=== PATIENT | female | born 1950 ===

== ENCOUNTER 2024-02-05 08:58 | Inpatient (IN) | payer OTHER ==
[2024-02-05 12:10] VITALS: BMI 35.8
[2024-02-05] MEDS ORDERED: ACETAMINOPHEN 500 MG TAB PO PRN (13:00)
[2024-02-05] MEDS ORDERED: methocarbamoL 500 MG TAB PO PRN (13:04)
[2024-02-05] MEDS ORDERED: DOCUSATE NA/SENNA CONC 1 TAB PO PRN (14:12)
[2024-02-05] MEDS ORDERED: MELATONIN 3 MG TABLET PO PRN (14:12)
[2024-02-05] MEDS: TRAMADOL HCL 50 MG TAB PO PRN (15:51)
[2024-02-05] MEDS: INSULIN REGULAR (HUMAN) 100 UNIT/ML SQ SCH (17:27)
[2024-02-05] MEDS: DOCUSATE NA/SENNA CONC 1 TAB PO SCH (20:12)
[2024-02-05] MEDS: PIOGLITAZONE 15 MG TAB PO SCH (20:13)
[2024-02-05] MEDS: glipiZIDE 5 MG TAB PO SCH (20:16)
[2024-02-05] MEDS: oxyBUTYnin chloride 5 MG TAB PO SCH (20:16)
[2024-02-05] MEDS: APIXABAN 2.5 MG TABLET PO SCH (20:16)
[2024-02-05] MEDS: GABAPENTIN 100 MG CAP PO SCH (20:16)
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
[2024-02-06 04:22] LABS: Specific Gravity 1.006 (1.005-1.030); Sqamous Epithelial <5 /HPF (None Seen); Urine Bacteria >50 /HPF (<20); Urine Bilirubin NEGATIVE (Negative); Urine Blood 1+ (Negative); Urine Clarity Extremely Turbid (Clear); Urine Color Light-Orange (Yellow); Urine Culture Reflex Order REFLEXED; Urine Glucose 4+ (Negative); Urine Ketones 1+ (Negative); Urine Micro Reflex YN NO BILL MICROSCOPIC; Urine Nitrite 1+ (Negative); Urine Protein TRACE (Negative); Urine RBC <5 /HPF (None Seen); Urine Urobilinogen Normal (Normal); Urine WBC >50 /HPF (<5); Urine WBC Clump Many /HPF (None Seen)
[2024-02-06 05:27] LABS: Absolute Eosinophils 0.1 K/uL (0-0.5); Absolute Lymphocytes (CBC) 1.8 K/uL (0.7-4.9); Absolute Monocytes 0.7 K/uL (0.1-1.3); Absolute Neutrophil 4.9 K/uL (1.8-8.0); Basophils % 0.2 % (0-1.3); Eosinophils % 1.8 % (0-4.4); Hematocrit 27.3 % (36.0-45.0); Hemoglobin 9.3 g/dL (12.0-15.0); Lymphocytes % 24.2 % (15.3-44.8); MCH 29.8 pg (27.0-35.0); MCV 87.8 fL (80-100); MPV 9.1 fL (7.6-11.3); Monocytes % 9.3 % (3.3-12.3); Neutrophils % 64.5 % (41.7-73.7); Platelets 221 thou/uL (152-406); RBC Red Blood Cell Count 3.11 M/uL (3.86-4.86); Red Cell Distribution Width 14.9 % (12.1-15.2)
[2024-02-06 05:53] LABS: Albumin 2.6 g/dL (3.4-5.0); Anion Gap 11.2 mEq/L (5.0-15.0); Magnesium 1.9 mg/dL (1.6-2.4); Potassium 4.2 mEq/L (3.5-5.1); Prealbumin 13.2 mg/dL (20-40)
[2024-02-06] MEDS ORDERED: ASPIRIN 325 MG TAB PO SCH ×2 (08:00)
[2024-02-06] MEDS: JANUMET PO SCH (08:00)
[2024-02-06] MEDS: ASPIRIN 81 MG CHEWABLE TABLET PO SCH (09:15)
[2024-02-06] MEDS: lisinopriL 10 MG TAB PO SCH (09:15)
[2024-02-06] MEDS: NA CHLORIDE 0.9% 1,000 ML IV SCH (12:43)
[2024-02-06] MEDS: GLUCERNA SHAKE 237 ML CAN PO SCH (20:00)
[2024-02-06] MEDS: CRANBERRY FRUIT EXTRACT 425 MG CAPSULE PO SCH (21:02)
[2024-02-07 06:30] LABS: Anion Gap 11.3 mEq/L (5.0-15.0); Potassium 4.3 mEq/L (3.5-5.1)
[2024-02-07] MEDS: FERROUS SULFATE 325 MG TAB PO SCH (08:29)
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
[2024-02-08] MEDS: CRANBERRY FRUIT EXTRACT 425 MG CAPSULE PO SCH (09:20)
--- NOTE | 2024-02-08 14:00 | P.RH.PN ---
Estimated Length of Stay: 16 Expected Discharge Date: 02/20/24 Discharge Disposition Plan: Home Family Support: Yes Intermediate Goal: Mobility, Transfers, Self Care Vital Signs: Last Vital Signs Temp 98.2 F 02/08/24 07:31 Pulse 74 02/08/24 09:20 Resp 16 02/08/24 07:31 BP 148/80 H 02/08/24 09:20 Pulse Ox 93 02/08/24 07:31 Laboratory: Laboratory Last Values WBC 7.60 thou/uL (4.3-10.9) 02/06/24 05:13 RBC 3.11 M/uL (3.86-4.86) L 02/06/24 05:13 Hgb 9.3 g/dL (12.0-15.0) L 02/06/24 05:13 Hct 27.3 % (36.0-45.0) L 02/06/24 05:13 MCV 87.8 fL (80-100) 02/06/24 05:13 MCH 29.8 pg (27.0-35.0) 02/06/24 05:13 MCHC 34.0 g/dL (32.0-36.0) 02/06/24 05:13 RDW 14.9 % (12.1-15.2) 02/06/24 05:13 Plt Count 221 thou/uL (152-406) 02/06/24 05:13 MPV 9.1 fL (7.6-11.3) 02/06/24 05:13 Neutrophils % 64.5 % (41.7-73.7) 02/06/24 05:13 Lymphocytes % 24.2 % (15.3-44.8) 02/06/24 05:13 Monocytes % 9.3 % (3.3-12.3) 02/06/24 05:13 Eosinophils % 1.8 % (0-4.4) 02/06/24 05:13 Basophils % 0.2 % (0-1.3) 02/06/24 05:13 Absolute Neutrophils 4.9 K/uL (1.8-8.0) 02/06/24 05:13 Absolute Lymphocytes 1.8 K/uL (0.7-4.9) 02/06/24 05:13 Absolute Monocytes 0.7 K/uL (0.1-1.3) 02/06/24 05:13 Absolute Eosinophils 0.1 K/uL (0-0.5) 02/06/24 05:13 Absolute Basophils 0.0 K/uL (0-0.5) 02/06/24 05:13 Sodium 137 mEq/L (136-145) D 02/07/24 05:30 Potassium 4.3 mEq/L (3.5-5.1) 02/07/24 05:30 Chloride 104 mEq/L (98-107) 02/07/24 05:30 Carbon Dioxide 26 mEq/L (21-32) 02/07/24 05:30 Anion Gap 11.3 mEq/L (5.0-15.0) 02/07/24 05:30 BUN 20 mg/dL (7-18) H 02/07/24 05:30 Creatinine 0.82 mg/dL (0.55-1.02) 02/07/24 05:30 Est GFR (CKD-EPI) 76 ml/min (=/>90) L 02/07/24 05:30 Glucose 125 mg/dL (74-106) H 02/07/24 05:30 POC Glucose 262 mg/dL (65-120) H 02/08/24 12:06 Hemoglobin A1c 7.8 % (4.2-6.3) H 02/06/24 05:13 Calcium 8.6 mg/dL (8.5-10.1) 02/07/24 05:30 Magnesium 1.9 mg/dL (1.6-2.4) 02/06/24 05:13 Albumin 2.6 g/dL (3.4-5.0) L 02/06/24 05:13 Prealbumin 13.2 mg/dL (20-40) L 02/06/24 05:13 Urine Color Light-orange (Yellow) 02/06/24 03:35 Urine Clarity Extremely turbid (Clear) H 02/06/24 03:35 Urine pH 5.0 (5.0-7.0) 02/06/24 03:35 Ur Specific Pharr 1.006 (1.005-1.030) 02/06/24 03:35 Glucose (UA)(Auto) 4+ (Negative) H 02/06/24 03:35 Urine Ketones 1+ (Negative) H 02/06/24 03:35 Urine Blood 1+ (Negative) H 02/06/24 03:35 Urine Nitrite 1+ (Negative) H 02/06/24 03:35 Urine Bilirubin Negative (Negative) 02/06/24 03:35 Urine Urobilinogen Normal (Normal) 02/06/24 03:35 Ur Leukocyte Esterase 500 Melody/uL (Negative) H 02/06/24 03:35 Urine RBC <5 /HPF (None Seen) 02/06/24 03:35 Urine WBC >50 /HPF (<5) H 02/06/24 03:35 Urine WBC Clumps Many /HPF (None Seen) H 02/06/24 03:35 Ur Squamous Epith Cells <5 /HPF (None Seen) 02/06/24 03:35 Urine Bacteria >50 /HPF (<20) H 02/06/24 03:35 Urine Culture Reflexed Reflexed 02/06/24 03:35 Urine Total Protein Trace (Negative) H 02/06/24 03:35 Weight: 183 lb 4.8 oz Wound Present: No Closed Surgical Incision Present: Yes Negative Pressure Wound Therapy Present: No Physician Update: Labs reviewed and are stable. RW 18' mod assist. With nonweight bearing. Min assist bed mobility and transfers. Met 3/3 STG and no LTG mets. Met 4/6 OT STG. Min to mod assist with lower body ADLs and showers. 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 Please see the Rehabilitation Signature page for all necessary signatures.
[2024-02-08] MEDS: SMZ./TMP. 800/160 MG TABLET PO SCH (20:57)
[2024-02-09] MEDS: NA CHLORIDE 0.9% 1,000 ML IV SCH (15:56)
--- NOTE | 2024-02-11 23:53 | PN ---
Date of Progress Note: 02/11/2024 Time Of Service: 1:30 p.m. Subjective: Ms. Knutson is resting comfortably, in no significant distress, has no new complaints s o far, happy with therapy. Objective: No fevers, chills, nausea, vomiting, myalgias, arthralgias. Some pain in the left lower extremity where she has distal displaced comminuted fracture. Did have some difficulty maintaining w eightbearing status, but she is doing well. Her knee is bandaged from the foot all the way up to the thigh area. Physical Examination: Vital Signs: Blood pressure 118/59, pulse 72, respiratory rate 18, temperature 97.7, oxygen saturati on 97%. General: Again, Ms. Knutson has finished therapy, came back to the room, sitting in a chair. Left leg elevated. She reports mild to moderate pain with therapy and pain eases when she is sitting, per haps around 3 or 2. Otherwise, no focal deficits, just pain related. Did decrease exertion on the l eft lower extremity. Laboratory Studies: Blood sugars ranged from 158 to 222. X-ray/imaging: No new x-rays or imaging. Medications: Medications have been reviewed and are unchanged. She is receiving Bactrim DS for urin bulmaro tract infection, 10 doses beginning 02/08/2024. Progress Made With Physical And Occupational Therapy: With physical therapy today, she did supine-to -sit transfers with standby assistance, multiple mcjyk-th-ipfuz transfers with contact guard assistan ce and verbal cues, multiple toilet transfers with grab bars and contact guard assistance. She ambul ated 20 feet and 25 feet 7 times with contact guard assistance with a rolling walker. Mobilized a wh eelchair 150 feet with standby assistance. With occupational therapy, supervision for gyx-fu-vddmi t ransfers, donning and doffing of socks with assistive device, done so with supervision. She did enga ge in 4/4 fmh-wm-ekghz transfers to improve strength and work with 2-pound Thera ball to improve stre ngth and performing her transfers. Assessment: Ms. Knutson is a 73-year-old patient in the rehabilitation unit with left distal displa reza comminuted spiral fracture that is surgically repaired. She has decreased mobility, decreased ph ysical functioning, hypertension, diabetes mellitus, she is now being treated for urinary tract infec tion. Plan: 1.She will continue with physical and occupational therapy, 3 hours a day. 2.We will continue with antibiotics for urinary tract infection. Continue with hypertension managem ent with Prinivil 10 mg daily, melatonin for insomnia, Robaxin for muscle spasms, glipizide for diabe kasandra control, she has gabapentin for neuropathic pain, aspirin for stroke risk reduction, Eliquis 2.5 mg twice daily for DVT risk reduction, Glucerna for malnutrition. Comorbidities That Are Impacting Rehabilitation: At this point, first big issue is this fracture and surgery in the left lower extremity and her maintaining weightbearing status which is mildly difficu lt. Blood sugars are slightly elevated with low of 102 earlier today and high of 220. More physical activity decreased blood sugar, so adjusting medication had to be carefully considered. She otherwi se has stable comorbidities that do not negatively impact her rehabilitation or medications for urina ry tract infection. AMIRAH/OLE Voice ID: [id number] Report ID: [id number]
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
[2024-02-14 08:57] LABS: Absolute Eosinophils 0.2 K/uL (0-0.5); Absolute Lymphocytes (CBC) 2.2 K/uL (0.7-4.9); Absolute Monocytes 0.5 K/uL (0.1-1.3); Absolute Neutrophil 3.4 K/uL (1.8-8.0); Basophils % 0.3 % (0-1.3); Eosinophils % 3.4 % (0-4.4); Hematocrit 31.1 % (36.0-45.0); Hemoglobin 10.4 g/dL (12.0-15.0); MCH 29.9 pg (27.0-35.0); MCHC 33.4 g/dL (32.0-36.0); MCV 89.5 fL (80-100); MPV 9.1 fL (7.6-11.3); Monocytes % 8.2 % (3.3-12.3); Neutrophils % 53.1 % (41.7-73.7); Nucleated Red Blood Cells % 0.2 % (0-0); Platelets 389 thou/uL (152-406); RBC Red Blood Cell Count 3.48 M/uL (3.86-4.86); Red Cell Distribution Width 15.9 % (12.1-15.2)
[2024-02-14 09:15] LABS: Albumin 3.1 g/dL (3.4-5.0); Anion Gap 11.2 mEq/L (5.0-15.0); Magnesium 2.1 mg/dL (1.6-2.4); Potassium 5.2 mEq/L (3.5-5.1); Prealbumin 21.3 mg/dL (20-40)
[2024-02-14] MEDS: NA CHLORIDE 0.9% 1,000 ML IV SCH (16:55)
[2024-02-14] MEDS: POLYETHYL GLY 3350 17 GM/DOSE PO PRN (21:23)
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
[2024-02-15 06:38] LABS: Anion Gap 10.2 mEq/L (5.0-15.0); Potassium 5.2 mEq/L (3.5-5.1)
--- NOTE | 2024-02-15 14:17 | P.RH.PN ---
Estimated Length of Stay: 16 Expected Discharge Date: 02/19/24 Discharge Disposition Plan: Home Family Support: Yes Half-Way Goal: Mobility, Transfers, Self Care Vital Signs: Last Vital Signs Temp 97.9 F 02/15/24 07:00 Pulse 72 02/15/24 08:59 Resp 16 02/15/24 07:00 BP 127/59 L 02/15/24 08:59 Pulse Ox 96 02/15/24 07:00 Laboratory: Laboratory Last Values WBC 6.40 thou/uL (4.3-10.9) 02/14/24 08:33 RBC 3.48 M/uL (3.86-4.86) L 02/14/24 08:33 Hgb 10.4 g/dL (12.0-15.0) L 02/14/24 08:33 Hct 31.1 % (36.0-45.0) L 02/14/24 08:33 MCV 89.5 fL (80-100) 02/14/24 08:33 MCH 29.9 pg (27.0-35.0) 02/14/24 08:33 MCHC 33.4 g/dL (32.0-36.0) 02/14/24 08:33 RDW 15.9 % (12.1-15.2) H 02/14/24 08:33 Plt Count 389 thou/uL (152-406) 02/14/24 08:33 MPV 9.1 fL (7.6-11.3) 02/14/24 08:33 Neutrophils % 53.1 % (41.7-73.7) 02/14/24 08:33 Lymphocytes % 35.0 % (15.3-44.8) 02/14/24 08:33 Monocytes % 8.2 % (3.3-12.3) 02/14/24 08:33 Eosinophils % 3.4 % (0-4.4) 02/14/24 08:33 Basophils % 0.3 % (0-1.3) 02/14/24 08:33 Absolute Neutrophils 3.4 K/uL (1.8-8.0) 02/14/24 08:33 Absolute Lymphocytes 2.2 K/uL (0.7-4.9) 02/14/24 08:33 Absolute Monocytes 0.5 K/uL (0.1-1.3) 02/14/24 08:33 Absolute Eosinophils 0.2 K/uL (0-0.5) 02/14/24 08:33 Absolute Basophils 0.0 K/uL (0-0.5) 02/14/24 08:33 Sodium 130 mEq/L (136-145) L 02/15/24 05:38 Potassium 5.2 mEq/L (3.5-5.1) H 02/15/24 05:38 Chloride 102 mEq/L (98-107) 02/15/24 05:38 Carbon Dioxide 23 mEq/L (21-32) 02/15/24 05:38 Anion Gap 10.2 mEq/L (5.0-15.0) 02/15/24 05:38 BUN 27 mg/dL (7-18) H 02/15/24 05:38 Creatinine 0.95 mg/dL (0.55-1.02) 02/15/24 05:38 Est GFR (CKD-EPI) 64 ml/min (=/>90) L 02/15/24 05:38 Glucose 141 mg/dL (74-106) H 02/15/24 05:38 POC Glucose 155 mg/dL (65-120) H 02/15/24 11:08 Hemoglobin A1c 7.8 % (4.2-6.3) H 02/06/24 05:13 Calcium 9.0 mg/dL (8.5-10.1) 02/15/24 05:38 Magnesium 2.1 mg/dL (1.6-2.4) 02/14/24 08:33 Albumin 3.1 g/dL (3.4-5.0) L 02/14/24 08:33 Prealbumin 21.3 mg/dL (20-40) 02/14/24 08:33 Urine Color Light-orange (Yellow) 02/06/24 03:35 Urine Clarity Extremely turbid (Clear) H 02/06/24 03:35 Urine pH 5.0 (5.0-7.0) 02/06/24 03:35 Ur Specific [place] 1.006 (1.005-1.030) 02/06/24 03:35 Glucose (UA)(Auto) 4+ (Negative) H 02/06/24 03:35 Urine Ketones 1+ (Negative) H 02/06/24 03:35 Urine Blood 1+ (Negative) H 02/06/24 03:35 Urine Nitrite 1+ (Negative) H 02/06/24 03:35 Urine Bilirubin Negative (Negative) 02/06/24 03:35 Urine Urobilinogen Normal (Normal) 02/06/24 03:35 Ur Leukocyte Esterase 500 Melody/uL (Negative) H 02/06/24 03:35 Urine RBC <5 /HPF (None Seen) 02/06/24 03:35 Urine WBC >50 /HPF (<5) H 02/06/24 03:35 Urine WBC Clumps Many /HPF (None Seen) H 02/06/24 03:35 Ur Squamous Epith Cells <5 /HPF (None Seen) 02/06/24 03:35 Urine Bacteria >50 /HPF (<20) H 02/06/24 03:35 Urine Culture Reflexed Reflexed 02/06/24 03:35 Urine Total Protein Trace (Negative) H 02/06/24 03:35 Weight: 183 lb 4.8 oz Wound Present: No Closed Surgical Incision Present: Yes Negative Pressure Wound Therapy Present: No Physician Update: Na is still low at 130. Will increase NaCl to 2 grams bid. RW 40' SBA. Independent with all transfers. Met all LTG and STG with OT. SBA for toileting. Summary: Patient's care plan and healthcare financial analyst goals have been reviewed and revised as necessary. Please see the Rehabilitation Signature page for all necessary sig natures.
[2024-02-15] MEDS: NA CHLORIDE 0.9% 1,000 ML IV SCH (16:03)
[2024-02-15] MEDS: SODIUM CHLORIDE 1 GM TAB PO SCH (16:08)
[2024-02-15] MEDS: MUPIROCIN 2% OINT 22GM TUBE TOP SCH (19:48)
[2024-02-17 06:27] LABS: Anion Gap 11.8 mEq/L (5.0-15.0); Potassium 4.8 mEq/L (3.5-5.1)
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
[2024-02-19 07:05] VITALS: BP 115/59; TEMP 98.2
== END 2024-02-19 08:00 | disposition home health service (06) | DRG 560 ==
LOC: 5TH 11:45 → UNDOADMIN 11:45 → 5TH 11:50
PROVIDERS: ADMIT Psychiatry & Neurology Neurology with Special Qualifications in Child Neurology; ATTEND Psychiatry & Neurology Neurology with Special Qualifications in Child Neurology
DX: S72.452D Displaced supracondylar fracture without intracondylar extension of lower end of left femur, subsequent encounter for closed fracture with routine healing (principal); N39.0 Urinary tract infection, site not specified; S92.352D Displaced fracture of fifth metatarsal bone, left foot, subsequent encounter for fracture with routine healing; V89.2XXD Person injured in unspecified motor-vehicle accident, traffic, subsequent encounter; I10 Essential (primary) hypertension; E87.6 Hypokalemia; D64.9 Anemia, unspecified; E11.9 Type 2 diabetes mellitus without complications; Z91.81 History of falling; R33.9 Retention of urine, unspecified; K59.00 Constipation, unspecified; R53.81 Other malaise; E86.0 Dehydration; G47.00 Insomnia, unspecified; M62.838 Other muscle spasm
CPT/HCPCS: 36415; 80048; 81001; 82040; 82947; 83036; 83735; 84134; 85025; 87077; 87086; 87088; 87186; 97110; 97116; 97161; 97165; 97530; 97542; J7030